=== PATIENT | female | born 1995 | race African-American/Black ===

== ENCOUNTER 2023-05-18 13:51 | Emergency (ER) | payer SELFPAY ==
[2023-05-18 15:22] LABS: BASOPHILS PERCENT AUTO 0.6 % (0.0-1.0); EOSINOPHILS ABSOLUTE AUTO 0.2 K/mm3 (0.0-0.4); EOSINOPHILS PERCENT AUTO 3.1 % (0.0-6.0); HEMATOCRIT 47.8 % (37.0-47.0); HEMOGLOBIN 16.1 gm/dl (12.0-16.0); IMMATURE GRAN ABSOLUTE AUTO 0.02 K/mm3 (0.00-0.05); IMMATURE GRAN PERCENT AUTO 0.3 % (0.0-0.4); LYMPHOCYTES ABSOLUTE AUTO 1.5 K/mm3 (1.0-4.8); LYMPHOCYTES PERCENT AUTO 24.4 % (24.0-44.0); MEAN CORPUSCULAR HEMOGLOBIN 28.5 pg (28.0-32.0); MEAN CORPUSCULAR HGB CONC 33.7 g/dl (32.0-36.0); MEAN CORPUSCULAR VOLUME 84.8 fl (83.0-99.0); MEAN PLATELET VOLUME 10.1 fl (9.4-12.3); MONOCYTES ABSOLUTE AUTO 0.5 K/mm3 (0.0-0.8); MONOCYTES PERCENT AUTO 7.4 % (0.0-8.0); NEUTROPHILS PERCENT AUTO 64.2 % (41.0-71.0); PLATELET COUNT,PLT 311 K/mm3 (150-400); RED BLOOD CELL COUNT 5.64 M/mm3 (4.10-5.30); WHITE BLOOD CELL COUNT,WBC 6.22 K/mm3 (3.9-11.3)
[2023-05-18 15:39] LABS: A/G RATIO 1.2 (1-2); ALBUMIN 4.1 g/dl (3.4-5.0); ANION GAP 8.4 (5-15); BILIRUBIN TOTAL 2.4 mg/dL (0.2-1.0); BUN/CREATININE RATIO 7.8 (14-18); CALCIUM 9.4 mg/dL (8.5-10.1); CREATININE 0.9 mg/dL (0.55-1.02); EST CRCL DRUG DOSING (CG) 71.48 mL/min; POTASSIUM,K 4.4 mEq/L (3.5-5.1); PROTEIN TOTAL,TP 7.6 g/dl (6.4-8.2); TSH 0.691 uIU/mL (0.358-3.74)
== END 2023-05-18 16:40 | disposition home or self-care (01) ==
LOC: JD.ED 13:51
DX: R53.83 Other fatigue (principal)
CPT/HCPCS: 36415; 80053; 84443; 85025; 99284

== ENCOUNTER 2023-07-13 15:01 | Emergency (ER) | payer SELFPAY ==
[2023-07-13] MEDS ORDERED: Benzocaine 20% Topical Spray UD MUCMEM ONE (16:28)
== END 2023-07-13 16:45 | disposition home or self-care (01) ==
LOC: EDSEX 15:01 → JD.ED 15:01
DX: J02.9 Acute pharyngitis, unspecified (principal)
CPT/HCPCS: 87070; 87651-QW; 99283; A9270-GY

== ENCOUNTER 2024-01-02 23:32 | Emergency (ER) | payer MEDICAID ==
[2024-01-03] MEDS: Sodium Chloride 0.9% 1,000 ML IV ONE (00:06)
[2024-01-03] MEDS: LORazepam 2 MG/ML SDV IVPUSH ONE (00:12)
[2024-01-03 00:13] LABS: BASOPHILS PERCENT AUTO 0.4 % (0.0-1.0); EOSINOPHILS ABSOLUTE AUTO 0.1 K/mm3 (0.0-0.4); HEMATOCRIT 42.6 % (37.0-47.0); HEMOGLOBIN 14.4 gm/dl (12.0-16.0); IMMATURE GRAN ABSOLUTE AUTO 0.04 K/mm3 (0.00-0.05); IMMATURE GRAN PERCENT AUTO 0.4 % (0.0-0.4); LYMPHOCYTES ABSOLUTE AUTO 1.6 K/mm3 (1.0-4.8); LYMPHOCYTES PERCENT AUTO 17.5 % (24.0-44.0); MEAN CORPUSCULAR HEMOGLOBIN 28.7 pg (28.0-32.0); MEAN CORPUSCULAR HGB CONC 33.8 g/dl (32.0-36.0); MEAN CORPUSCULAR VOLUME 84.9 fl (83.0-99.0); MEAN PLATELET VOLUME 9.3 fl (9.4-12.3); MONOCYTES ABSOLUTE AUTO 0.5 K/mm3 (0.0-0.8); NEUTROPHILS ABSOLUTE AUTO 6.7 K/mm3 (1.8-7.7); NEUTROPHILS PERCENT AUTO 74.7 % (41.0-71.0); PLATELET COUNT,PLT 431 K/mm3 (150-400); RED BLOOD CELL COUNT 5.02 M/mm3 (4.10-5.30); WHITE BLOOD CELL COUNT,WBC 8.96 K/mm3 (3.9-11.3)
[2024-01-03 00:42] LABS: A/G RATIO 1.3 (1-2); ALBUMIN 4.5 g/dl (3.4-5.0); ANION GAP 15.1 (5-15); BILIRUBIN TOTAL 1.3 mg/dL (0.2-1.0); BUN/CREATININE RATIO 15.6 (14-18); CALCIUM 9.2 mg/dL (8.5-10.1); CREATININE 0.9 mg/dL (0.55-1.02); EST CRCL DRUG DOSING (CG) 68.04 mL/min; POTASSIUM,K 3.1 mEq/L (3.5-5.1); PROTEIN TOTAL,TP 8.1 g/dl (6.4-8.2)
== END 2024-01-03 01:56 | disposition home or self-care (01) ==
LOC: JD.ED 23:32
DX: F12.10 Cannabis abuse, uncomplicated (principal)
CPT/HCPCS: 36415; 80053; 84703; 85025; 96361; 96374; 99283; J2060; J7030